=== PATIENT | female | born 1940 | race Caucasian/White ===

== ENCOUNTER → 2021-02-27 09:29 | Outpatient (CLI) | payer OTHER, SELFPAY ==
--- NOTE | 2021-02-27 | DI.MRI.S_ITS ---
PROCEDURE: MR CERVICAL SPINE WO CON INDICATIONS: Spinal stenosis, cervical region TECHNIQUE: Noncontrast sagittal T1 spin echo and T2 fast spin echo, sagittal STIR, foraminal oblique sagittal T2 fast spin echo, and axial gradient echo or T2 fast spin echo through the cervical spine. COMPARISON: None. FINDINGS: Image quality: Excellent. Alignment and Curvature: Straightening of the normal lordotic curvature. Bone Marrow: Multilevel degenerative endplate sclerosis and spurring. Diffuse facet arthropathy. Spinal Cord: Visualized spinal cord has normal size and signal. No cerebellar tonsillar herniation. Paraspinous Soft Tissues: No paravertebral masses. Prevertebral soft tissues are normal in thickness. C2-C3: No canal narrowing. Mild bilateral foraminal narrowing. C3-C4: No canal stenosis. Mild right foraminal narrowing. Moderate left foraminal stenosis with slight nerve root compression. C4-C5: Mild canal narrowing. Moderate to severe right foraminal stenosis with nerve root compression. Severe left foraminal stenosis with nerve root compression. C5-C6: Mild canal narrowing. Moderate right foraminal stenosis with nerve root compression. Moderate to severe left foraminal stenosis with nerve root compression. C6-C7: Minimal canal narrowing. Moderate right foraminal narrowing with nerve root compression. Moderate left foraminal stenosis. C7-T1: Normal appearance. IMPRESSION: No high-grade canal stenosis. Diffuse bilateral foraminal stenoses as detailed above. Straightening of the normal lordotic curvature. Dictated by: Kyle Erwin M.D. on 02/27/2021 at 12:50 Approved by: Kyle Erwin M.D. on 02/27/2021 at 12:57
== END ==
PROVIDERS: PCP Physician Assistant; Referring Provider Orthopaedic Surgery Orthopaedic Surgery of the Spine; Visit Provider Orthopaedic Surgery Orthopaedic Surgery of the Spine
DX: M48.02 Spinal stenosis, cervical region (principal)
CPT/HCPCS: 72141

== ENCOUNTER → 2021-12-10 10:09 | Outpatient (CLI) | payer OTHER, SELFPAY ==
[2021-12-10 12:21] LABS: COVID19 -Nasal RAPID Negative (Negative)
== END ==
PROVIDERS: PCP Physician Assistant; Visit Provider Family Medicine Sleep Medicine
DX: Z20.822 Contact with and (suspected) exposure to COVID-19 (principal)
CPT/HCPCS: 87635; C9803

== ENCOUNTER 2021-12-12 11:16 | Day surgery (SDC) | payer OTHER, SELFPAY ==
[2021-12-10 12:50] VITALS: BMI 28.3
[2021-12-12] VITALS (20 sets, daily range): BP systolic 129–159; BP diastolic 64–87; PULSE 78–107; RESP 12–20; TEMP 35.6–37; O2SAT 96–99; BMI 28.3
--- NOTE | 2021-12-12 06:00 | DI.RAD.S_ITS ---
PROCEDURE: XR HIP W PEL IF DONE LT 2V INDICATIONS: anterior left hip. TECHNIQUE: 2 view(s) of the hip acquired. COMPARISON: [facility], CR, XR HIP W PEL IF DONE LT 2V, 12/12/2021, 16:27. FINDINGS: 2 intraoperative C-arm and images demonstrate a right hip arthroplasty and placement of new left hip arthroplasty which is incompletely visualized.. IMPRESSION: Intraoperative images taken during placement of left hip arthroplasty. Dictated by: Nathaniel Esteban [facility] Interpreted: Logan Ellis MD on 12/12/2021 at 17:03 Transcribed by: CARLOS on 12/12/2021 at 17:04 Approved by: Logan Ellis M.D. on 12/12/2021 at 17:14
[2021-12-12] MEDS: CELECOXIB 200 MG CAPSULE PO (11:47)
[2021-12-12] MEDS: VANCOMYCIN 1,000 MG/200 ML PIGGYBACK 200 MG IV (11:59)
--- NOTE | 2021-12-12 12:59 | SUR.OPER ---
Patient supine on padded [place] table, one arm on padded arm board at <90, other arm padded and secured with tape across patient's chest, both legs secured in padded traction boots and positioned per surgeon, padded post at patient's groin, pressure points checked and padded.
--- NOTE | 2021-12-12 13:00 | DI.RAD.S_ITS ---
PROCEDURE: XR HIP W PEL IF DONE LT 2V INDICATIONS: Anterior Left JANA. TECHNIQUE: AP pelvis and lateral view of the left hip acquired. COMPARISON: [facility], MAGALY, XR HIP W PEL IF DONE LT 2V, 12/12/2021, 16:09. FINDINGS: Bones: Patient is status post left hip arthroplasty, with hardware components in expected positions. The hip joint appears congruent. The visualized bony structures appear intact. There is also prior right total hip arthroplasty. Soft tissues: Overlying postoperative changes are noted. No suspicious soft tissue densities. IMPRESSION: Postop changes from left total hip arthroplasty with anatomic left hip alignment. Dictated by: Logan Ellis M.D. on 12/12/2021 at 16:59 Approved by: Logan Ellis M.D. on 12/12/2021 at 16:59
--- NOTE | 2021-12-12 13:27 | PM.PREOP ---
Pre-operative Note COVID-19 COVID-19 status: Negative Criteria for continued procedure: Possibility delay results in more complex future surgery or treatment, Increased loss of function and Continuing or worsening of significant or severe pain Interval Note History & Physical reviewed/Exam performed by Physician: Yes Changes to H&P: No
--- NOTE | 2021-12-12 13:28 | P.OP_ITS ---
Operative Date/Time/Diagnoses Date of procedure: 12/12/21 Time of procedure: 13:30 Pre-op diagnosis: Right total hip arthroplasty anterior approach Post-op diagnosis: same Procedure & Clinicians Procedure: Right total hip arthroplasty anterior approach Same procedure as scheduled: Yes Indications: The patient has had progressively worsening right hip pain with radiographic changes consistent with arthritis. Non-operative management has failed and the patient has requested total hip replacement. The risks, benefits and alternatives to surgery were discussed with the patient prior to proceeding. Risks discussed included, but were not limited to, failure to relieve pain, leg length discrepancy, dislocation, stiffness, infection, nerve damage, deep venous thrombosis, pulmonary embolism, stroke, coma, heart attack, permanent paralysis and , as well as the potential need for eventual revision of the prosthetic. Surgeon: Gris Sol Pressing Machine Operator: Rachel Mueller Anesthesia Type: General and Spinal Operative Notes Closure Type: primary Specimen(s): none sent Prosthetic devices, grafts, tissues, transplants, or devices: Sol and nephew R3 52 cup, 36+ 0 Oxinium head, size 6 standard offset anthology, three 6.5 mm screws Estimated Blood Loss (mL): 250 Procedure in detail: The patient was brought to the operating room. Patient was carefully positioned in the supine position. Time-out was performed and antibiotics were given. Anesthesia was induced. She was positioned in the on the table in order to allow hyperextension of the hip. The left lower extremity was prepped and draped in a standard sterile fashion. An anterior left hip incision was made 1 fingerbreadth lateral to the anterior superior iliac spine and extended distally towards the greater trochanter. Dissection was carried out through skin and subcutaneous tissues. Superficial hemostasis was achieved. The fascia over the tensor fascia gaudencio was defined and incised with a knife. Two Allis clamps were used to grasp the fascia. Tensor fascia gaudencio was retracted laterally. A gelpi retractor was placed. Dissection was carried out down along the neck. The circumflex vessels were carefully identified and cauterized with the Aqua Mantis. There was good visualization of the femoral neck. A Cobra was placed superior to the neck and the gluteus fibers were carefully stripped from that superior aspect of the capsule. A 2nd retractor was placed along the inferior aspect of the neck. The rectus insertion along the capsule was partially released. A 3rd retractor that was then gently placed over the rim of the acetabulum under the rectus. Capsule was carefully incised and released from the intertrochanteric line circumferentially superior to the mid sagittal line and inferiorly to the mid sagittal line until the lesser trochanter was palpable. A tag stitch was placed both in the superior and inferior limb of the capsular insertion. Along the acetabulum capsule was also released up to the mid sagittal 12:00 position. A portion of the labrum was resected. A saw was used to perform an osteotomy at the level of the intertrochanteric line and the junction of the superior femoral neck leaving approximately 1 finger breath of residual inferior neck above the lesser trochanter. A 2nd cut was made along the femoral neck at the base of the head and a napkin ring of neck was removed. Corkscrew was placed in the femoral head and the head was removed without difficulty. Retractors were then repositioned around the acetabulum. Residual labrum was resected and additional osteophytes were removed. A reamer that was 4 mm below the templated size was placed by hand in the acetabulum and it was reamed to centralize the acetabulum. It was then reamed up to 2 under the templated size and fluoroscopy was brought in to confirm the position of the reaming and depth of reaming. I reamed 1 under the anticipated size. A trial cup was placed and noted that it was appropriately sized and fluoroscopy confirmed position and depth. The component was open and inserted without difficulty fluoroscopic imaging was used to confirm that the cup had been adequately seated and was well positioned. She had very soft bone and I stabilized it with three 6.5 mm screws. Neutral poly liner was placed. The cup was tested and noted to be stable. Attention was then directed to the femur. The femur was gently hyperextended additional capsular release was performed as needed in order to allow adequate visualization of the proximal femur with elevation of the femur. Patient was placed in a hyperextended slightly adducted position with maximum external rotation. Box osteotome was used to check for any residual neck as well as sclerotic bone along the trochanter. [place] pepper was placed in the femur. Additional broaching was performed. Canal finder was used to determine the alignment of the canal and position. Size 1 broach was placed. The canal was then appropriately broached up to the templated size as long as there was adequate stability of the broach and serial advancement of the broach without excessive impingement. Specific attention was directed at avoiding varus attempting to direct the distal aspect of the broach more anteriorly and avoiding excessive anteversion. Trial reduction showed acceptable range of motion, good stability, no posterior impingement, adventist of leg length and appropriate lateral shuck. I also hyperflexed the hip and checked that there was no impingement anteriorly and there was good stability with flexion, adduction and internal rotation. Marcaine and Exparel were injected. The stem was placed without difficulty. Repeat trial reduction and x-ray showed acceptable overall position, length, and no evidence of the femoral fracture. Final head was placed. Wound was meticulously irrigated with normal saline. The hip was reduced and additional Exparel and Marcaine were injected. The capsule was closed with interrupted nonabsorbable sutures. The fascia of the tensor was closed with interrupted and running Vicryl. No drain was placed. Any tensor fascia gaudencio muscle that appeared to be contused or injured which was a minimal amount was carefully resected. Capsule around the tensor was injected with Exparel and Marcaine. The skin was closed with barbed stitches for the subcutaneous tissue and skin. We also used surgical glue. The wound was dressed sterilely. Brief Betadine soak was also used and was meticulously irrigated w ith normal saline. Patient was transferred to recovery room in satisfactory condition. Complications: none Post-operative Condition: stable Disposition: Acute Care Plan for aftercare: The patient will be maintained on a standard total hip replacement protocol with weight bearing as tolerated and anterior hip precautions. The patient will receive Aspirin and sequential compression devices for DVT prophylaxis. The patient will be discharged home when safe for the home environment.
[2021-12-12] MEDS: TRANEXAMIC ACID 1,000 MG VIAL 2000 MG INJ ×2 (14:00→15:58)
[2021-12-12] MEDS: CEFAZOLIN 2 GM/20 ML SYRINGE IV ×2 (14:00→18:22)
[2021-12-12] MEDS: BUPIVACAINE 0.25% (PF) 60 ML, EPINEPHrine 0.3 MG INJ (14:19)
[2021-12-12] MEDS: BUPIVACAINE LIPOSOME 266 MG/20 ML VIAL INJ (14:20)
[2021-12-12] MEDS: HYDROMORPHONE 2 MG INJ IV ×3 (16:56→17:22)
[2021-12-12] MEDS: OXYCODONE IR 5 MG TABLET PO ×2 (17:13→18:20)
[2021-12-12] MEDS: LACTATED RINGERS 1,000 ML 42 ML IV (17:21)
--- NOTE | 2021-12-12 18:16 | SUR.PHASEI ---
12/12/21-1744 Report from Anne Marie BRADSHAW , pacu lost charge card clerk recieved. 1.2 mgs dilaudid at bedside wasted .Patient awake and alert. csm BLE wnl. denies nausea . pain down/tolerable. dressing left anterior hip cdi. iv converted to saline lock. report to floor Rn done. vss. met criteria. Dr Sol said hello to patient prior to transfer. Wide awake,alert/oriented x 4. 1750-to floor by bed with clothes bag. Dr Sol asked if spoke with family. Per Md-did not at present. 1755-In room 214. Rn Bandar, at bedside to recieve patient. Dressing cdi. Handoff to RN.
[2021-12-12] MEDS: LACTATED RINGERS 1,000 ML 125 ML IV (18:20)
[2021-12-12] MEDS: LOSARTAN 50 MG TABLET PO (18:21)
[2021-12-12] MEDS: IBUPROFEN 400 MG TABLET PO ×2 (18:21→21:20)
[2021-12-12] MEDS: ONDANSETRON 4 MG ODT PO (21:15)
[2021-12-12] MEDS: DOCUSATE 100 MG CAPSULE PO (21:20)
[2021-12-12] MEDS: ASPIRIN EC 81 MG TABLET PO (21:20)
[2021-12-12] MEDS: ATORVASTATIN 20 MG TABLET 10 MG PO (21:20)
[2021-12-12] MEDS: ACETAMINOPHEN 325 MG TABLET 650 MG PO (21:20)
[2021-12-12] MEDS: MONTELUKAST 10 MG TABLET PO (21:20)
--- NOTE | 2021-12-12 21:42 | PC.NURSE ---
Patient is alert and oriented. Breath sounds CTA with RA sat of 99%. HRR. BP elevated at 150/64 consistent with previous recordings. Complained of slight nausea so was medicated with Zofran ODT then able to take hs medications and now eating a popsicle. BT present but has not yet passed flatus. At shift change patient reported she had not urinated since early this morning so was bladder scanned showing 379cc. Later was able to get up to BSC with walker and 1 assist and voided 300cc; denies dysuria. Aquacel dressing to left anterior hip is CDI. Denied pain but does have ice pack to incision and medicated with scheduled Tylenol + Ibuprofen. Is able to move herself in bed. Wearing bilateral calf SCD's. CMS is intact. Fall risk score is moderate and bed alarm is activated.
[2021-12-13] MEDS: IBUPROFEN 400 MG TABLET PO ×4 (01:42→12:35)
[2021-12-13] MEDS: CEFAZOLIN 2 GM/20 ML SYRINGE IV (01:42)
[2021-12-13 02:51] VITALS: BP 124/60; PULSE 94; RESP 18; TEMP 36.3; O2SAT 100
[2021-12-13] MEDS: LACTATED RINGERS 1,000 ML 125 ML IV (02:54)
[2021-12-13 05:49] LABS: Hematocrit 29.3 % (36-46); Hemoglobin 10.1 g/dL (12.0-16.0)
[2021-12-13 08:05] VITALS: BP 115/54; PULSE 84; RESP 16; TEMP 36.5; O2SAT 97
--- NOTE | 2021-12-13 09:06 | P.DS_ITS ---
History of Present Illness History of Present Illness Date Patient Seen: 12/13/21 Time Patient Seen: 09:06 Chief complaint: LT JANA *OPB* Narrative: Operative Date/Time/Diagnoses Date of procedure: 12/12/21 Time of procedure: 13:30 Pre-op diagnosis: Right total hip arthroplasty anterior approach Post-op diagnosis: same Procedure & Clinicians Procedure: Right total hip arthroplasty anterior approach Same procedure as scheduled: Yes Indications: The patient has had progressively worsening right hip pain with radiographic ch anges consistent with arthritis. Non-operative management has failed and the patient has requested total hip replacement. The risks, benefits and alternatives to surgery were discussed with the patient prior to proceeding. Risks discussed included, but were not limited to, failure to relieve pain, leg length discrepancy, dislocation, stiffness, infection, nerve damage, deep venous thrombosis, pulmonary embolism, stroke, coma, heart attack, permanent paralysis and , as well as the potential need for eventual revision of the prosthetic. Surgeon: Gris Sol Resistor Winder: Rachel Mueller Anesthesia Type: General and Spinal Operative Notes Closure Type: primary Specimen(s): none sent Prosthetic devices, grafts, tissues, transplants, or devices: Sol and nephew R3 52 cup, 36+ 0 Oxinium head, size 6 standard offset anthology, three 6.5 mm screws Estimated Blood Loss (mL): 250 Discharge Providers Provider Date of admission: 12/12/2021 Discharge Date: 12/13/21 Primary care physician: Kaity Carr PA-C Consults: 12/09/21 08:12 Consult to Anesthesiology Routine Comment: Consulting Provider: Anesthesiologist Reason for consultation: Regional block for post operative pain control 12/12/21 06:00 Consult to Anesthesiology Routine Comment: Consulting Provider: Anesthesiologist Reason for consultation: Regional block for post operative pain control 12/12/21 17:49 Consult to Discharge Planning Routine Comment: Consult to Physical Therapy Evaluate & Treat Comment: Physician Instructions: post op JANA protocol Consult to Respiratory Therapy Evaluate & Treat Comment: Physician Instructions: Evaluate and treat Discharge provider: Rachel Mueller PA-C Summary Hospital Course Discharge Diagnosis: s/p L TKA Hospital Course: Ms Dotson's hospital course was unremarkable. On POD#1 she was feeling well and wanted to go home. She has her for assistance and a walker for homegoing. She was evaluated by PT prior to discharge. Exam Vital Signs (past 8 hours): - 12/13/21 02:51 Temperature 97.3 F L Pulse Rate 94 H Respiratory Rate 18 Blood Pressure 124/60 Pulse Oximetry 100 Oxygen Delivery Method Room Air Oxygen Flow Rate 0 Narrative Exam Narrative: 5/5 strength in hip flexors, quadriceps, hamstrings, DF, PF, EHL bilaterally. Sensation to light touch decreased in anterolateral left thigh but otherwise intact throughout BLE. Calves soft, compressible, nontender, and without palpable cords or masses. Objective Labs Result Diagrams: 12/13/21 05:18 Labs: Laboratory Results - last 24 hr 12/13/21 05:18 Hgb 10.1 L Hct 29.3 L PFSH Medical History (Updated 12/10/21 @ 13:13 by Shanna Mayo RN) Constipation Easy bruisability HLD (hyperlipidemia) HTN (hypertension) Osteoarthritis Surgical History (Updated 12/13/21 @ 09:16 by Rachel Mueller PA-C) History of bilateral tubal ligation History of hysterectomy History of total right hip replacement (2006) Hx of bilateral cataract extraction Social History household members: spouse Smoking Status: Never smoker alcohol intake: current Discharge Assessment & Plan Assessment and Plan Assessment: POD# 1 s/p left total hip arthroplasty, anterior approach. Recovery as expected. Acute anemia d/t blood loss during surgery. Asymptomatic, no intervention needed at this time. Plan of Treatment: Discharge home. She has tylenol, ibuprofen, aspirin, and a stool softener at home. She was given a prescription for oxycodone. Discharge Plan Discharge Plan Patient Disposition: Home Discharge orders & Medications Discharge Orders: Discharge (Order); Ordered 12/13/21 Ordered By: Rachel Mueller Prescriptions: New aspirin 81 mg Tablet,Delayed Release (Dr/Ec) 81 mg PO BID Qty: 42 0RF ibuprofen 400 mg Tablet 400 mg PO Q4HR Qty: 30 0RF oxycodone 5 mg Tablet 5 mg PO Q4-6H PRN (Reason: Pain, Moderate (4-6)) Qty: 14 0RF acetaminophen 325 mg Tablet 650 mg PO TID Qty: 30 0RF Continued simvastatin 20 MG tablet 20 mg PO BEDTIME Qty: 0 0RF hydrochlorothiazide 25 MG tablet 25 mg PO QDAY Qty: 0 0RF losartan 50 mg Tablet 50 mg PO QPM 0RF montelukast 10 mg Tablet 10 mg PO BEDTIME 0RF estradiol [Vagifem] 10 mcg Tablet 10 mcg VAGINAL QWEEK 0RF Discontinued acetaminophen 650 mg Tablet Extended Release 1,300 mg PO QD-BID PRN (Reason: Pain) 0RF ibuprofen 200 mg Capsule 200 mg PO BID PRN (Reason: Pain) 0RF Follow up/Referrals: Kaity Carr PA-C [Primary Care Provider] - Gris Sol MD [Physician] - As previously scheduled (Follow up with Dr Sol on 12/26/2021 @ 10:30 am at [facility] office in [place] ) Diet/Activity/Treatments Diet: Diet as Tolerated Activity: WBAT LLE. Anterior hip precautions. Cold/Heat Therapy: Ice as needed for pain. Skin/Wound/Dressing Care Report to your healthcare provider any signs of infection, such as:: chills, fever, night sweats, increased pain, unusual drainage and unusual redness Dressing: May shower. Leave Aquacel dressing intact until follow up visit. No bathing or otherwise soaking incision. Call office if dressing becomes saturated inside. Visit Report/Discharge Packet Instructions: DI for Hip Replacement Stand Alone Forms: Surgery Discharge Discharge Data Primary Care Provider: Kaity Carr Attending Provider: Gris Sol Quality VTE Deep Vein Thrombosis/Pulmonary Embolism Present on Admission: No
[2021-12-13] MEDS: ASPIRIN EC 81 MG TABLET PO (09:27)
[2021-12-13] MEDS: DOCUSATE 100 MG CAPSULE PO (09:27)
[2021-12-13] MEDS: ACETAMINOPHEN 325 MG TABLET 650 MG PO ×2 (09:27→14:35)
[2021-12-13] MEDS: hydroCHLOROthiazide 25 MG TABLET PO (09:28)
[2021-12-13] MEDS: OXYCODONE IR 5 MG TABLET PO ×2 (09:28→13:03)
[2021-12-13] MEDS: SODIUM CHLORIDE 0.9% FLUSH 10 ML IV (09:28)
--- NOTE | 2021-12-13 09:30 | PT.IIE ---
Current Diagnoses Unilateral primary osteoarthritis, left hip (12/12/21) Presence of left artificial hip joint (12/12/21) Surgery Performed Operation Date: 12/12/21 13:00 Actual Procedures p Total Hip Arthroplasty/Anterior Approach(Left) - Gris Sol MD Medical History (Last Updated 12/10/21 @ 13:13 by Shanna Mayo RN) Constipation Easy bruisability HLD (hyperlipidemia) HTN (hypertension) Osteoarthritis Physical Therapy Inpatient Evaluation/Re-Eval M1 PT/OT-IP Prior Functional Status Start: 12/13/21 12:50 Freq: NEEDED Status: Active Protocol: Document 12/13/21 09:30 AB (Rec: 12/13/21 13:04 AB [email or web address]) Medical Review Prior Functional Status Medical History Reviewed Yes Communication able to make needs known Mobility and Gait pt stated that she is indpeendent with all mobilities and ambulation without AD but had been using a SPC for the last week due to hip pain Social History Household Members spouse Living Arrangements House Number of Floors (Floors) One Floor Number of Stairs To Enter/Railing? 4 steps R rail ascending to enter has a sunken living room and has 1 step to go down Home Environment Standard Height Toilet,High Toilet,Tub/Shower,Tub/Shower Doors Home Equipment Shower Seat without Backrest, Hand Held Shower Additional Social History Comment pt stated that her spouse is disabled and will not be able to assist her but her sister will be staying to help her as long as she needs it M2 PT-IP Current Condition Start: 12/13/21 12:50 Freq: NEEDED Status: Active Protocol: Document 12/13/21 09:30 AB (Rec: 12/13/21 13:04 AB [email or web address]) Physical Therapy Current Condition Current Condition Evaluation Date 12/13/21 Treatment Diagnosis s/p L JANA anterior approach; difficulty in walking Onset Date 12/12/21 M3 PT-IP Subjective Start: 12/13/21 12:50 Freq: NEEDED Status: Active Protocol: Document 12/13/21 09:30 AB (Rec: 12/13/21 13:04 AB [email or web address]) Subjective Physical Therapy Visit Type Type Initial Evaluation Visit Start Time 09:30 Visit Stop Time 10:15 Total Visit Minutes 45 Number of WELDER JOURNEYMAN Visits 0 Physical Therapy Visit Comments Patient Comments agreeable to do PT Therapy Pain Assessment Pain When Pain Assessed At Rest Pain Present Pain Present Pain Reported Location Left Hip Intensity 3 Scale Used increases to 8/10 with mobility Pain Behaviors Facial Grimacing,Guarding, Wincing Pain Management Techniques Apply Cold,Distraction, Modification of Treatment,Re- positioning,Timing of Activity with Medications M4 PT-IP Mobility and Gait Start: 12/13/21 12:50 Freq: NEEDED Status: Active Protocol: Document 12/13/21 09:30 AB (Rec: 12/13/21 13:04 AB [email or web address]) PT-Bed Mobility Assessment Supine to Sit Supine to Sit Maximum Assistance Sit to Supine Sit to Supine Minimal Assistance PT-Transfer Assessment Sit to and From Stand Sit to and from Stand Minimal Assistance Equipment Transfer Assistive Device Gait Belt,Front Wheeled Walker Orthotic/Prosthetic Devices or Brace: No Transfers Transfer Destination Bed,Chair Transfer Technique Stand Step Pivot Transfer Ability Level of Assist Minimal Assistance,Use of Upper Extremities Comments Mobility Comments educated pt on anterior hip precautions. pt with increase time needed to follow directions and cues to recall precautions. pt sitting on chair. stated that she is still numb on her L upper thigh above her knee to the hip. agreed to do PT. completed sit to stand min A and cues and took ~ 4 steps using FWW min A to the bed. completed sit to supine min A and max cues. completed supine to sit max A and cues. required 2 attempts to complete. pt stated that she cannot do it or move her LLE. pt instructed on techniques but with difficutly following directions. pt then sat on EOB CGA. c/o increase hip pain. completed sit to stand min A and transferred to chair min A and cues. refused further ambulation. positoned on the chair. call light and table placed within reach. informed pt regarding caregiver training and agreed. set up caregiver training today at 130 pm with pt's sister. Gait Assessment Comments Gait Comments took steps during transfer ~ 4 steps using FWW min A PT-Balance Assessment Sitting Balance and Reactions Static Sitting Balance Ability Good Dynamic Sitting Balance Ability Good Standing Balance and Reactions Static Standing Balance Ability Fair Dynamic Standing Balance Ability Fair Device Used FWW M5 PT-IP Objective Assessments Start: 12/13/21 12:50 Freq: NEEDED Status: Active Protocol: Document 12/13/21 09:30 AB (Rec: 12/13/21 13:04 AB [id number]) Orientation Orientation/Cognition Level of Alertness Alert Orientation Name,Age,Birthday,Month,Date, Year,Day of Week,Place, Situation Language Function Ability Hard of Hearing Safety Awareness Decreased Safety Awareness Memory Description Short Term Impaired Gross Range of Motion Lower Extremity ROM Assessment Within Functional Limits Strength Lower Extremity Strength Assessment Left Impaired Hip 3-/5 Knee 3+/5 Coordination Assessment Gross Coordination Gross Coordination WNL Sensation Assessment Sensation Gross Sensation Left LE Impaired Sensation Description Numbness Comments Sensation Comments c/o anterior L thigh are numbness Muscle Tone Muscle Tone WNL Yes M6 PT-IP Treatment Start: 12/13/21 12:50 Freq: NEEDED Status: Active Protocol: Document 12/13/21 09:30 AB (Rec: 12/13/21 13:04 [email or web address]) Physical Therapy Treatment Education Education Provided Precautions,Weight Bearing Status,Post-Op Packet,Safety M7 PT-IP Assessment and Plan Start: 12/13/21 12:50 Freq: NEEDED Status: Active Protocol: Document 12/13/21 09:30 AB (Rec: 12/13/21 13:04 [email or web address]) PT Summary Assessment and Plan Potential Rehabilitation Potential Fair Status of Condition at Evaluation Evolving Summary Impairments Pain,ROM,Strength,Balance, Coordination,Sensation,Tone, Cognition,Bed Mobility, Transfers,Gait,Activity Tolerance Assessment Summary pt requiring max A with bed mobility, min A with transfers using FWW and unable to tolerate much activity due to c/o increase L hip pain to 8/ 10. caregiver training set up today at 130 pm with sister. will continue to assess progress for safe d/c plan. Goals Bed Mobility Goal Standby Assistance Transfer Goal Standby Assistance,Front Wheeled Walker Gait Goal Standby Assistance,Front Wheel Walker Gait Distance 250 Other Goals up/down 1 platform step CGA up/down 4 steps R rail ascending CGA Days to Meet Goals 10 Frequency of Treatment Frequency Of Treatment Twice a Day Treatment Plan Physical Therapy Treatment Plan Bed Mobility Training,Transfer Training,Gait Training, Therapeutic Exercise,Balance Retraining,Post Op Education, Discharge Planning,Hot or Cold Pack,Neuromuscular Re-ed, Coordination Retraining,Manual Therapy Precautions Anterior Hip Precautions No Hip Extension,No Hip External Rotation Weight Bearing Status Weight Bearing Status Weight Bear as Tolerated Allowed Weight Bearing Amount (enter % LLE WBAT or #) (%) Recommendations To Nursing Amount of Assist Needed 1 Person Assist Discharge Recommendations PT Discharge Recommendations Home with 24/7 Assist Available,Home Health,SNF Rehab,Home vs SNF Transportation Needs at Discharge Private Vehicle,Wheelchair/ Cabulance
[2021-12-13] MEDS: polyethylene glycoL 3350 17 GM POWD.PACK PO (11:05)
[2021-12-13 12:57] VITALS: O2SAT 98
--- NOTE | 2021-12-13 13:42 | PT.IPTN ---
Current Diagnoses Unilateral primary osteoarthritis, left hip (12/12/21) Presence of left artificial hip joint (12/12/21) Surgery Performed Operation Date: 12/12/21 13:00 Actual Procedures p Total Hip Arthroplasty/Anterior Approach(Left) - Gris Sol MD Physical Therapy Treatment Note M2 PT-IP Current Condition Start: 12/13/21 12:50 Freq: NEEDED Status: Active Protocol: Document 12/13/21 09:30 AB (Rec: 12/13/21 13:04 AB [email or web address]) Physical Therapy Current Condition Current Condition Evaluation Date 12/13/21 Treatment Diagnosis s/p L JANA anterior approach; difficulty in walking Onset Date 12/12/21 M3 PT-IP Subjective Start: 12/13/21 12:50 Freq: NEEDED Status: Active Protocol: Document 12/13/21 13:42 AB (Rec: 12/13/21 15:25 AB [email or web address]) Subjective Physical Therapy Visit Type Type Treatment Note Visit Start Time 13:42 Visit Stop Time 14:27 Total Visit Minutes 45 Number of PRECONSTRUCTION MANAGER Visits 0 Physical Therapy Visit Comments Patient Comments agreeable to do PT Therapy Pain Assessment Pain When Pain Assessed At Rest Pain Present Pain Present Pain Reported Location Left Hip Intensity 3 Scale Used increases with mobility M4 PT-IP Mobility and Gait Start: 12/13/21 12:50 Freq: NEEDED Status: Active Protocol: Document 12/13/21 13:42 AB (Rec: 12/13/21 15:25 AB [email or web address]) PT-Bed Mobility Assessment Supine to Sit Supine to Sit Minimal Assistance,Moderate Assistance Sit to Supine Sit to Supine Minimal Assistance PT-Transfer Assessment Sit to and From Stand Sit to and from Stand Contact Guard Assistance,1 Person Assistance,Use of Upper Extremities Equipment Transfer Assistive Device Gait Belt,Front Wheeled Walker Orthotic/Prosthetic Devices or Brace: No Transfers Transfer Destination Bed Transfer Technique ambulated Transfer Ability Level of Assist Contact Guard Assistance, Minimal Assistance,1 Person Assistance,Use of Upper Extremities Comments Mobility Comments pt's sister in room for caregiver training. educated caregiver on pt's anterior hip precautions, use of safety belt and how to assist pt. sister was able to don safety belt on pt. assisted pt with sit to stand and ambulation in room using fWW. pt rested and agreed to do stairs. pt completed sit to stand CGA and ambulation using FWW CGA ~ 100 ft. educated pt and pt's sister regarding stair climbing. pt completed up/down platfrom step using FWW with her sister assisting min A. pt completed x 2 sets. pt then completed up/down 3 steps using R rail min A and cues. pt assisted back to her room. pt stated that she has pain is increasing. completed sit to stand from the w/c with her sister assisting and ambulated to the EOB. Bed mobility training conducted. pt's sister was able to assist pt with bed mobility. pt ambulated from EOB to the chair using FWW min A with increase antalgic gait and cued for steadiness. stated that hip pain is more. positioned pt on the chair. call light and table placed within reach. pt and sister without any other concerns. informed nurse. Gait Assessment Gait Gait Assistance Required: Contact Guard Assist,Minimum Assistance Distance (Feet) 100 Able to Maintain Weight Bearing Status Yes During Gait Assistive Devices Assistive Device Gait Belt,Front Wheeled Walker Orthotic/Prosthetic Devices or Brace: No Gait Deviations General Gait Pattern Antalgic,Decreased Stride Length,Decreased Feet Clearance Factors Limiting Gait Function Factors Limiting Gait Function Decreased Activity Tolerance, Decreased Strength,Difficulty Following Directions,Pain,Poor Balance,Poor Safety Awareness Stair Climbing Assessment Evaluation Level of Assist On Stairs Minimal Assistance,1 Person Assistance Devices Stair Climbing Assistive Devices Front Wheel Walker,Right Railing Technique/Endurance Stair Climbing Direction Ascend and Descend Stair Climbing Technique Step to Step Number of Steps Climbed 3 Stair Climbing Set # Repetitions (reps) 2 M5 PT-IP Objective Assessments Start: 12/13/21 12:50 Freq: NEEDED Status: Active Protocol: Document 12/13/21 09:30 AB (Rec: 12/13/21 13:04 AB [email or web address]) Orientation Orientation/Cognition Level of Alertness Alert Orientation Name,Age,Birthday,Month,Date, Year,Day of Week,Place, Situation Language Function Ability Hard of Hearing Safety Awareness Decreased Safety Awareness Memory Description Short Term Impaired Gross Range of Motion Lower Extremity ROM Assessment Within Functional Limits Strength Lower Extremity Strength Assessment Left Impaired Hip 3-/5 Knee 3+/5 Coordination Assessment Gross Coordination Gross Coordination WNL Sensation Assessment Sensation Gross Sensation Left LE Impaired Sensation Description Numbness Comments Sensation Comments c/o anterior L thigh are numbness Muscle Tone Muscle Tone WNL Yes M6 PT-IP Treatment Start: 12/13/21 12:50 Freq: NEEDED Status: Active Protocol: Document 12/13/21 13:42 AB (Rec: 12/13/21 15:25 AB [email or web address]) Physical Therapy Treatment Education Education Provided Precautions,Weight Bearing Status,Safety M7 PT-IP Assessment and Plan Start: 12/13/21 12:50 Freq: NEEDED Status: Active Protocol: Document 12/13/21 13:42 AB (Rec: 12/13/21 15:25 AB [email or web address]) PT Summary Assessment and Plan Potential Rehabilitation Potential Good Summary Impairments Pain,ROM,Strength,Balance, Coordination,Sensation,Tone, Cognition,Bed Mobility, Transfers,Gait,Activity Tolerance Progress Towards Goals Progressing Toward Goals Assessment Summary caregiver training conducted and pt's sister was able to assist her safely. pt plans to go home today. pt has outpt PT scheduled per pt. Goals Bed Mobility Goal Standby Assistance Transfer Goal Standby Assistance,Front Wheeled Walker Gait Goal Standby Assistance,Front Wheel Walker Gait Distance 250 Other Goals up/down 1 platform step CGA up/down 4 steps R rail ascending CGA Days to Meet Goals 10 Frequency of Treatment Frequency Of Treatment Twice a Day Treatment Plan Physical Therapy Treatment Plan Bed Mobility Training,Transfer Training,Gait Training, Therapeutic Exercise,Balance Retraining,Post Op Education, Discharge Planning,Hot or Cold Pack,Neuromuscular Re-ed, Coordination Retraining,Manual Therapy Precautions Anterior Hip Precautions No Hip Extension,No Hip External Rotation Weight Bearing Status Weight Bearing Status Weight Bear as Tolerated Allowed Weight Bearing Amount (enter % LLE WBAT or #) (%) Recommendations To Nursing Amount of Assist Needed 1 Person Assist Discharge Recommendations PT Discharge Recommendations Home with Assistance, Outpatient PT Transportation Needs at Discharge Private Vehicle
[2021-12-13] MEDS: OXYCODONE IR 5 MG TABLET 10 MG PO (15:25)
== END 2021-12-13 15:34 | disposition home or self-care (01) ==
LOC: OR 11:19 → AC 11:23
PROVIDERS: PCP Physician Assistant; Referring Provider Orthopaedic Surgery; Visit Provider Orthopaedic Surgery
PROC: (CPT 27130; principal; 2021-12-12 13:00)
DX: M16.11 Unilateral primary osteoarthritis, right hip (principal); I10 Essential (primary) hypertension
CPT/HCPCS: 27130; 36415; 73502; 76000; 85014; 85018; 97162; 97530; C1776; C9290; J0171; J0690; J1170; J2250; J2704; J3010